=== PATIENT | male | born 1990 | race Caucasian/White ===

== ENCOUNTER 2022-12-28 11:00 | Emergency (ER) | payer OTHER ==
[~2022-12-28] VITALS: Ht 175.3 cm; Wt 93.2 kg
[2022-12-28 11:31] VITALS: BP 140/84
== END 2022-12-28 11:31 | disposition home or self-care (01) ==
LOC: ED 11:00
DX: I83.892 Varicose veins of left lower extremity with other complications (principal)
CPT/HCPCS: 99282